=== PATIENT | female | born 1990 | race Caucasian/White ===

== ENCOUNTER 2016-12-05 21:29 | Emergency (ER) | payer OTHER | END 2016-12-05 22:14 | disposition left against medical advice (07) | LOC: EMS 21:30 | DX: Z53.21 Procedure and treatment not carried out due to patient leaving prior to being seen by health care provider (principal) ==

== ENCOUNTER 2017-05-26 09:45 | Emergency (ER) | payer OTHER | END 2017-05-26 10:30 | disposition left against medical advice (07) | LOC: EMS 09:46 | DX: S61.512A Laceration without foreign body of left wrist, initial encounter (principal); X99.1XXA Assault by knife, initial encounter; Y93.89 Activity, other specified; Y92.89 Other specified places as the place of occurrence of the external cause; Y99.8 Other external cause status; Z53.21 Procedure and treatment not carried out due to patient leaving prior to being seen by health care provider ==